=== PATIENT | female | born 1975 | race American Indian/Alaskan Native ===

== ENCOUNTER 2017-08-24 11:19 | Outpatient (CLI) | payer MEDICAID ==
[2017-08-24 13:56] LABS: Hematocrit 37.8 % (30.3-42.9); Hemoglobin 12.8 gm/dl (10.1-14.3); Mean Corpuscular HGB Conc 34 % (30-34); Mean Corpuscular Hemoglobin 33 pg (28-32); Mean Corpuscular Volume 96 fl (79-97); Platelet Count 218 K/mm3 (140-440); Red Blood Count 3.93 M/mm3 (3.65-5.03); Red Cell Distribution Width 13.7 % (13.2-15.2)
[2017-08-24] MEDS ORDERED: LACTATED RINGERS 500 ML IV ONE (14:00)
[2017-08-24 14:06] LABS: INR 0.96 (0.87-1.13)
[2017-08-24 14:07] LABS: Partial Thromboplastin Time 27.4 Sec. (24.2-36.6)
--- NOTE | 2017-08-24 15:05 | Ultrasound Report ---
OB ULTRASOUND GREATER THAN 14 WEEKS INDICATION: Fall, lower back pain. COMPARISON: None similar at this institution. TECHNIQUE: Transabdominal grayscale ultrasound with Doppler interrogation. Gestation: Single Position: Cephalic Amniotic Fluid: WNL (7-24 cm) HYACNITH = 13.6 cm Placenta: Fundal; no evidence of abruption Placental Grade: II Heart Rate: 137 BPM Cervical length: Obscured (Normal > 3 cm) ANATOMY VISUALIZED: Stomach Kidneys Bladder Diaphragm 4 Chamber Heart Heart 3 Vessel Cord Abd. Cord Insert SPINE VISUALIZED: Longitudinal Transverse Limited spine due to position The following are not demonstrated due to maternal body habitus or lie: Neuroanatomy BPD: 8.5 cm = 34 w 1 d HC: 31.3 cm = 35 w 1 d AC: 29 cm = 33 w 0 d FL: 6.7 cm = 34 w 4 d HC/AC Ratio: 1.1 Cephalic Index: 79.1 Estimated Weight: 2281 grams Clinical age = 33 w 0 d EDC: 10/12/2017 US Gest. Age = 34 w 2 d EDC: 10/03/2017 CONCLUSION: Single, viable intrauterine gestation with ultrasound estimated age of 34 weeks and 2 days and EDC of 10/03/2017, currently in cephalic lie with details, as above. Thank you for the opportunity to participate in this patient's care.
[2017-08-24] MEDS ORDERED: PROCARDIA*For Tocolysis only PO SCH (16:00)
[2017-08-24] MEDS: PROCARDIA*For Tocolysis only PO SCH ×2 (17:28→21:57)
[2017-08-24] MEDS ORDERED: BENADRYL PO PRN (17:43)
[2017-08-24] MEDS ORDERED: MILK OF MAGNESIA PO PRN (17:43)
[2017-08-24] MEDS ORDERED: DEEP SEA NS PRN (17:43)
[2017-08-24] MEDS ORDERED: COLACE PO PRN (17:43)
[2017-08-24] MEDS ORDERED: ZOFRAN IV PRN (17:43)
[2017-08-24] MEDS ORDERED: AMBIEN PO PRN (17:43)
[2017-08-24] MEDS ORDERED: MYLICON PO PRN (17:43)
[2017-08-24] MEDS ORDERED: PROCARDIA XL PO SCH (18:00)
[2017-08-24] MEDS: TYLENOL PO PRN (20:51)
[2017-08-24] MEDS: LACTATED RINGERS 1,000 ML IV SCH (20:57)
[2017-08-25] MEDS: LACTATED RINGERS 1,000 ML IV SCH (04:04)
[2017-08-25] MEDS: PROCARDIA*For Tocolysis only PO SCH ×2 (05:41→10:21)
[2017-08-25] MEDS ORDERED: PRENATAL VITAMIN PO SCH (10:00)
[2017-08-25 11:45] VITALS: BP 114/66
[2017-08-25] MEDS: TYLENOL PO PRN (11:54)
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
== END 2017-08-25 11:45 | disposition home or self-care (01) ==
LOC: TRG 11:19 → LD 11:44 → TRG 08-25 11:45
PROVIDERS: ATTEND Obstetrics & Gynecology
DX: O09.523 Supervision of elderly multigravida, third trimester (principal); O26.893 Other specified pregnancy related conditions, third trimester; M54.5 Low back pain; W19.XXXA Unspecified fall, initial encounter; Z3A.33 33 weeks gestation of pregnancy; Z87.891 Personal history of nicotine dependence; Y93.89 Activity, other specified; Y92.89 Other specified places as the place of occurrence of the external cause; Y99.8 Other external cause status
CPT/HCPCS: 36415; 76805; 82731; 85027; 85610; 85730; 86850; 86900; 86901; J7120; 59025

== ENCOUNTER 2017-09-10 13:19 | Inpatient (IN) | payer MEDICAID ==
[2017-09-10] MEDS ORDERED: LACTATED RINGERS 500 ML IV ONE (14:12)
--- NOTE | 2017-09-10 15:48 | Ultrasound Report ---
ULTRASOUND BIOPHYSICAL PROFILE: History: well being Technique: Transabdominal ultrasound with Doppler interrogation. 2 - breathing movements 2 - movements 2 - posture and tone 2 - Qualitative amniotic fluid volume 8 - TOTAL SCORE OF POSSIBLE 8 Heart Rate (bpm) 132
--- NOTE | 2017-09-10 15:49 | Ultrasound Report ---
ULTRASOUND OB LIMITED History: well being Technique: Transabdominal ultrasound with Doppler interrogation. Gestation: Single Position: Cephalic Amniotic Fluid: Normal HYACINTH = 14.3 cm Heart Rate: 145 BPM
[2017-09-10 16:46] LABS: Basophils # (Auto) 0.1 K/mm3 (0.0-0.1); Basophils % (Auto) 0.9 % (0.0-1.8); Eosinophils % (Auto) 0.5 % (0.0-4.3); Hematocrit 38.4 % (30.3-42.9); Lymphocytes # (Auto) 1.8 K/mm3 (1.2-5.4); Lymphocytes % (Auto) 20.1 % (13.4-35.0); Mean Corpuscular HGB Conc 34 % (30-34); Mean Corpuscular Hemoglobin 33 pg (28-32); Mean Corpuscular Volume 96 fl (79-97); Monocytes % (Auto) 10.9 % (0.0-7.3); Platelet Count 197 K/mm3 (140-440); Red Blood Count 3.99 M/mm3 (3.65-5.03); Red Cell Distribution Width 14.2 % (13.2-15.2)
[2017-09-10] MEDS ORDERED: LACTATED RINGERS 1,000 ML ONE (16:50)
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
[2017-09-10] MEDS ORDERED: ALUM-MAG HYDROX-SIMETH 200-200-20MG/5ML PO PRN (17:22)
[2017-09-10] MEDS ORDERED: MYLICON PO PRN (17:22)
[2017-09-10] MEDS ORDERED: ZOFRAN IV PRN (17:22)
[2017-09-10] MEDS ORDERED: TYLENOL PO PRN (17:22)
[2017-09-10] MEDS ORDERED: MILK OF MAGNESIA PO PRN (17:22)
[2017-09-10] MEDS ORDERED: COLACE PO PRN (17:22)
[2017-09-10] MEDS ORDERED: AMBIEN PO PRN (17:22)
[2017-09-10] MEDS ORDERED: LACTATED RINGERS 1,000 ML IV SCH (18:00)
[2017-09-11 07:59] VITALS: BP 101/64
--- NOTE | 2017-09-11 08:12 | Consultation ---
History of Present Illness - Reason for Consult Consult date: 09/11/17 Requesting physician: ALBERTO SALES Past History Social history: . denies: smoking, alcohol abuse, prescription drug abuse Medications and Allergies Allergies Allergy/AdvReac Type Severity Reaction Status Date / Time No Known Allergies Allergy Unverified 08/24/17 12:50 Home Medications Medication Instructions Recorded Confirmed Last Taken Type NIFEdipine [Procardia] 10 mg PO TID #90 capsule 08/25/17 Unknown Rx Active Meds: Active Medications Acetaminophen (Tylenol) 650 mg PO Q4H PRN PRN Reason: Pain MILD(1-3)/Fever >100.5/TERRY Al Hydrox/Mg Hydrox/Simethicone (Alum-Mag Hydrox-Simeth [phone]/5ml) 30 ml PO Q6H PRN PRN Reason: Indigestion Docusate Sodium (Colace) 100 mg PO Q12H PRN PRN Reason: Constipation Lactated Ringer's (Lactated Ringers) 1,000 mls @ 125 mls/hr IV DIRECT [facility] Last Admin: 09/11/17 05:57 Dose: 125 mls/hr Magnesium Hydroxide (Milk Of Magnesia) 30 ml PO QHS PRN PRN Reason: Laxative Effect Multivitamins/Iron/Calcium ( Vitamin) 1 each PO QDAY [facility] Ondansetron HCl (Zofran) 4 mg IV Q6H PRN PRN Reason: Nausea And Vomiting Simethicone (Mylicon) 80 mg PO Q6H PRN PRN Reason: Gas pain Zolpidem Tartrate (Ambien) 10 mg PO ONCE PRN PRN Reason: Sleep Exam - Constitutional Vitals: Temp Pulse Resp BP Pulse Ox 97.5 F L 82 24 101/64 97 09/11/17 07:58 09/11/17 08:10 09/11/17 07:58 09/11/17 08:02 09/11/17 08:10 Results - Labs CBC & Chem 7: 09/10/17 16:24 Labs: Abnormal lab results 09/10/17 Range/Units 16:24 MCH 33 H (28-32) pg [place] % (Auto) 10.9 H (0.0-7.3) % [place] # 1.0 H (0.0-0.8) K/mm3 Assessment and Plan Pt. seen; full note to follow in paper chart. Currently reassuring tracing. BPP pending. If all remains reassuring, can d/c home. Continue [facility] outpt. f/u.
--- NOTE | 2017-09-11 09:05 | Progress Note ---
Assessment and Plan - Patient Problems (1) contractions Current Visit: Yes Status: Acute Plan to address problem: reassuring monitoring send patient home Subjective - Subjective Date of service: 09/11/17 Interval history: Patient without any significant complaints. Reports that intermittent contractions are not painful. Review of NST CAT 1. BPP 03/13. Patient reports: no new complaints Objective - Vital Signs Vital Signs: Vital Signs - 12hr 09/10/17 09/11/17 09/11/17 22:30 00:30 04:00 Temperature 96.0 F L 97.0 F L 97.0 F L Pulse Rate Respiratory 16 18 Rate Blood Pressure Blood Pressure [Left] O2 Sat by Pulse Oximetry 09/11/17 09/11/17 09/11/17 05:34 06:00 06:24 Temperature 97.3 F L 97.0 F L Pulse Rate 70 Respiratory 20 Rate Blood Pressure 112/75 Blood Pressure [Left] O2 Sat by Pulse Oximetry 09/11/17 09/11/17 09/11/17 07:58 08:00 08:02 Temperature 97.5 F L Pulse Rate 91 H 72 90 Respiratory 24 Rate Blood Pressure 107/66 101/64 Blood Pressure 101/64 [Left] O2 Sat by Pulse 98 98 Oximetry 09/11/17 09/11/17 09/11/17 08:05 08:10 08:15 Temperature Pulse Rate 81 82 79 Respiratory Rate Blood Pressure Blood Pressure [Left] O2 Sat by Pulse 97 97 97 Oximetry 09/11/17 09/11/17 09/11/17 08:20 08:25 08:30 Temperature Pulse Rate 87 71 71 Respiratory Rate Blood Pressure Blood Pressure [Left] O2 Sat by Pulse 98 98 98 Oximetry 09/11/17 09/11/17 09/11/17 08:35 08:40 08:45 Temperature Pulse Rate 80 85 78 Respiratory Rate Blood Pressure Blood Pressure [Left] O2 Sat by Pulse 97 98 97 Oximetry 09/11/17 09/11/17 08:49 08:50 Temperature Pulse Rate 87 Respiratory Rate Blood Pressure Blood Pressure [Left] O2 Sat by Pulse 62 L 98 Oximetry - Labs Labs: Abnormal Labs 09/10/17 16:24 MCH 33 H [place] % (Auto) 10.9 H [place] # 1.0 H Laboratory Results - last 24 hr 09/10/17 09/10/17 16:13 16:24 WBC 8.7 RBC 3.99 Hgb 13.0 Hct 38.4 MCV 96 MCH 33 H MCHC 34 RDW 14.2 Plt Count 197 Lymph % (Auto) 20.1 [place] % (Auto) 10.9 H Eos % (Auto) 0.5 Baso % (Auto) 0.9 Lymph # 1.8 [place] # 1.0 H Eos # 0.0 Baso # 0.1 Seg Neutrophils % 67.6 Seg Neutrophils # 5.9 Blood Type B POSITIVE Antibody Screen Negative
[2017-09-11] MEDS ORDERED: PRENATAL VITAMIN PO SCH (10:00)
--- NOTE | 2017-09-11 12:36 | Discharge Summary ---
Providers - Providers Date of Admission: 09/11/17 09:30 Date of discharge: 09/11/17 Attending physician: ALBERTO SALES MD 09/10/17 17:22 Consult to Physician [CONS] Routine Consulting Provider: INDIA WYNN Reason For Exam: [place], HX OF 34WK IUFD Place consult to:: SANCHEZ Notified:: ANSWERING SERVICE Phone number called:: [phone] Was contact made?: Yes If yes, spoke with:: ROXIE Time called:: 17:00 Primary care physician: ALBERTO SALES MD Hospitalization Reason for admission: other (contractions) Procedure: other (NST) Discharge diagnosis: other ( contractions) Hospital course: Patient evaluated for contractions with findings of variable decelerations during observation. The patient was admitted and received continuous FHT with CAT 1 tracing. The BPP was 8/8 Condition at discharge: Good Disposition: DC-01 TO HOME OR SELFCARE - Discharge Diagnoses (1) contractions Status: Acute Plan - Provider Discharge Summary Diet: routine Instructions: routine Additional instructions: [] Smoking cessation referral if applicable(refer to patient education folder for contact #) [] Refer to [facility] Booklet Call your doctor immediately for: * Fever > 100.5 * Heavy vaginal bleeding ( >1 pad per hour) * Severe persistent headache * Shortness of breath * Reddened, hot, painful area to leg or breast * followup in one week - Follow up plan
== END 2017-09-11 13:37 | disposition home or self-care (01) | DRG 782 ==
LOC: TRG 13:19 → LD 14:12 → TRG 14:12 → OBSVTOIN 09-11 09:30
PROVIDERS: ADMIT Obstetrics & Gynecology; ATTEND Obstetrics & Gynecology
DX: O76 Abnormality in fetal heart rate and rhythm complicating labor and delivery (principal); O60.03 Preterm labor without delivery, third trimester; Z3A.35 35 weeks gestation of pregnancy; Z82.49 Family history of ischemic heart disease and other diseases of the circulatory system; Z83.3 Family history of diabetes mellitus
CPT/HCPCS: 36415; 76815; 76819; 85025; 86850; 86900; 86901; G0378; J7120

== ENCOUNTER 2017-09-19 11:09 | Inpatient (IN) | payer MEDICAID ==
[2017-09-19] MEDS ORDERED: BRETHINE SUB-Q PRN (12:09)
[2017-09-19] MEDS ORDERED: STADOL IV PRN (12:09)
[2017-09-19] MEDS ORDERED: BRETHINE IVP PRN (12:09)
[2017-09-19] MEDS ORDERED: ePHEDrine SULFATE IV PRN ×2 (12:09→17:29)
[2017-09-19] MEDS ORDERED: SUBLIMAZE IV PRN (12:09)
[2017-09-19] MEDS ORDERED: MINERAL OIL PO PRN (12:09)
[2017-09-19] MEDS ORDERED: PITOCin/NS 20 UNIT/1000ML DRIP 20 UNITS/1,000 ML BAG IV SCH ×2 (13:00→23:02)
[2017-09-19] MEDS ORDERED: POLYCILLIN/NS 2 GM/100 ML 2 GM/100 ML BAG IV ONE (13:00)
[2017-09-19] MEDS ORDERED: XYLOCAINE 2% INFILTRATI ONE (13:00)
[2017-09-19] MEDS ORDERED: PITOCin/NS 30 UNIT/500ML 30 UNITS/500 ML BAG IV SCH ×2 (13:00)
[2017-09-19] MEDS: LACTATED RINGERS 1,000 ML IV SCH ×2 (13:10→14:53)
[2017-09-19 13:28] LABS: Hematocrit 39.2 % (30.3-42.9); Hemoglobin 13.3 gm/dl (10.1-14.3); Mean Corpuscular HGB Conc 34 % (30-34); Mean Corpuscular Hemoglobin 32 pg (28-32); Mean Corpuscular Volume 95 fl (79-97); Platelet Count 218 K/mm3 (140-440); Red Blood Count 4.13 M/mm3 (3.65-5.03); Red Cell Distribution Width 14.4 % (13.2-15.2)
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
[2017-09-19] MEDS ORDERED: POLYCILLIN/NS 1 GM/50 ML 1 GM/50 ML BAG IV SCH (16:12)
[2017-09-19] MEDS ORDERED: NARCAN 2 MG/2 ML IV PRN (17:29)
[2017-09-19] MEDS ORDERED: fentaNYL-BUPIV 2 MCG/ML-0.125% 200 MCG/100 ML BAG EPIDURAL SCH (18:30)
--- NOTE | 2017-09-19 18:58 | Anesthesia Consultation ---
Anesthesia Consult and Med Hx Date of service: 09/19/17 - Airway Anesthetic Teeth Evaluation: Good ROM Head & Neck: Adequate Mental/Hyoid Distance: Adequate Mallampati Class: Class III Intubation Access Assessment: Possibly Difficult - Pulmonary Exam CTA: Yes - Cardiac Exam Cardiac Exam: RRR - Pre-Operative Health Status ASA Pre-Surgery Classification: ASA3 Proposed Anesthetic Plan: Epidural, Spinal - Pulmonary Hx Smoking: Yes Hx Asthma: No COPD: No Hx Pneumonia: No - Cardiovascular System Hx Hypertension: No - Central Nervous System Hx Seizures: No Hx Psychiatric Problems: No - Endocrine Hx Renal Disease: No Hx End Stage Renal Disease: No Hx Hypothyroidism: No Hx Hyperthyroidism: No - Hematic Hx Anemia: No Hx Sickle Cell Disease: No - Other Systems Hx Alcohol Use: Yes
--- NOTE | 2017-09-19 19:20 | Event Note ---
Date: 09/19/17 Pt more comfortable with epidural but still feeling contractions. FHT: Category II Tracing- deep variable with late component. SVE: /-1 + bloody show. Continue routine intrapartum care. Closely monitor maternal and status.
--- NOTE | 2017-09-19 21:05 | Procedure Note ---
OB Delivery Note - Delivery Date of Delivery: 09/19/17 Surgeon: FREDRICK JOSÉ Estimated blood loss: 300cc - Vaginal Delivery presentation: vertex Delivery position: OA Intrapartum events: PROM->1hr before delivery, meconium, decreased FHT variability, mult.variable deceleratio Delivery induction: oxytocin Delivery augmentation: pitocin Delivery monitor: external uterine, internal uterine Route of delivery: Delivery placenta: spontaneous Delivery cord: 3 umbilical vessels Episiotomy: none Delivery laceration: none Anesthesia: epidural Delivery comments: Pt progressed to complete/complete/+2 and pushed to deliver a viable female over intact perineum via under epidural anesthesia. Head delivered in ANIA position quickly followed by shoulders and body. placed on maternal abdomen. Cord clamped and cut. Cord blood collected. Placenta delivered spontaneously (3VC, intact). Vagina and perineum explored. EBL 300 mL. - Infant A at 1 minute: 9 at 5 minutes: 9 Gender: Female (3156g (6lb 15 oz) @ 1950 pmm)
[2017-09-19] MEDS ORDERED: PHENERGAN PR PRN (23:02)
[2017-09-19] MEDS ORDERED: LANSINOH TP PRN ×2 (23:02)
[2017-09-19] MEDS ORDERED: TYLENOL PO PRN (23:02)
[2017-09-19] MEDS ORDERED: BENADRYL PO PRN (23:02)
[2017-09-19] MEDS ORDERED: MILK OF MAGNESIA PO PRN (23:02)
[2017-09-19] MEDS ORDERED: DULCOLAX PR PRN (23:02)
[2017-09-19] MEDS ORDERED: SODIUM CHLORIDE FLUSH SYRINGE 10 ML IV NR (23:02)
[2017-09-19] MEDS ORDERED: PHENERGAN PO PRN (23:02)
[2017-09-19] MEDS ORDERED: ZOFRAN IV PRN (23:02)
[2017-09-19] MEDS ORDERED: TUCKS PAD TP PRN (23:02)
[2017-09-19] MEDS ORDERED: DERMOPLAST TP PRN (23:02)
[2017-09-19] MEDS: MOTRIN PO SCH (23:54)
[2017-09-19] MEDS: FEOSOL PO SCH (23:54)
[2017-09-20] MEDS: NORCO 5/325 PO PRN ×2 (00:46→20:37)
[2017-09-20] MEDS: MOTRIN PO SCH ×3 (05:43→14:45)
[2017-09-20] MEDS ORDERED: M-M-R II VACCINE SUB-Q ONE (06:00)
[2017-09-20] MEDS ORDERED: BOOSTRIX IM ONE (06:00)
--- NOTE | 2017-09-20 08:52 | Progress Note ---
Assessment and Plan A: ~ 12 hrs s/p at 36 wks, PPROM, AMA, Obesity P: Routine care. Subjective - Subjective Date of service: 09/20/17 Principal diagnosis: s/p prterm delivery, PPROM at 36 wks Interval history: No overnight events. Patient reports: appetite normal, voiding normally, pain well controlled, ambulating normally [place]: doing well Objective - Vital Signs Latest vital signs: Vital Signs Temp Pulse Resp BP BP Pulse Ox 09/20/17 04:00 98.4 F 77 16 112/72 09/19/17 23:00 98.6 F 68 16 101/76 09/19/17 21:34 83 116/68 09/19/17 21:31 83 99 09/19/17 21:26 86 98 09/19/17 21:21 84 98 09/19/17 21:20 88 131/63 09/19/17 21:16 89 99 09/19/17 21:11 97 H 99 09/19/17 21:06 98 H 98 09/19/17 21:04 160 H 134/62 09/19/17 21:01 87 99 09/19/17 20:56 91 H 99 09/19/17 20:51 92 H 99 09/19/17 20:49 88 129/58 09/19/17 20:46 93 H 98 09/19/17 20:41 97 H 99 09/19/17 20:36 101 H 98 09/19/17 20:34 96 H 127/67 09/19/17 20:31 101 H 98 09/19/17 19:00 98.7 F 18 117/73 09/19/17 15:15 77 99 09/19/17 15:10 80 98 09/19/17 15:05 79 99 09/19/17 15:00 79 98 09/19/17 14:55 89 99 09/19/17 14:50 81 97 09/19/17 14:45 81 99 09/19/17 14:41 71 118/73 09/19/17 14:40 74 100 09/19/17 14:32 98.7 F 74 18 117/73 100 09/19/17 13:42 82 98 09/19/17 13:38 85 63 L 09/19/17 13:37 82 98 09/19/17 13:32 83 98 09/19/17 13:27 84 98 09/19/17 13:16 93 H 86 09/19/17 13:11 92 H 99 09/19/17 13:06 81 100 09/19/17 13:01 81 97 09/19/17 12:55 82 100 09/19/17 12:50 81 100 09/19/17 12:45 89 99 09/19/17 12:40 83 99 09/19/17 12:35 97 H 99 09/19/17 12:30 78 98 09/19/17 12:25 88 98 09/19/17 12:20 96 H 99 09/19/17 12:18 78 119/78 Intake and Output 09/19/17 09/20/17 09/20/17 22:59 06:59 14:59 Intake Total 9.333 Output Total 800 Balance 9.333 -800 Intake: IV 9.333 PITOCin/NS 30 UNIT/500ML 9.333 30 units In 500 ml @ 4 mls/hr IV TITR [facility] Rx#: [id number] Output: Urine 800 Void 800 Other: Total, Output Amount 800 # Voids Void 1 Estimated Blood Loss 300 - Exam Breasts: Present: deferred Cardiovascular: Present: Regular rate Lungs: Present: Clear to auscultation Abdomen: Present: soft Uterus: Present: fundal height at umbilicus Extremities: Present: edema
[2017-09-20 09:25] LABS: Hematocrit 35.2 % (30.3-42.9); Hemoglobin 12.1 gm/dl (10.1-14.3)
[2017-09-20] MEDS: PRENATAL VITAMIN PO SCH (10:59)
[2017-09-20] MEDS: FEOSOL PO SCH ×2 (11:00→20:59)
[2017-09-20] MEDS: COLACE PO SCH ×2 (11:01→20:59)
[2017-09-21] MEDS: MOTRIN PO SCH ×3 (00:05→12:43)
--- NOTE | 2017-09-21 08:38 | Progress Note ---
Assessment and Plan A/P PPD#2 s/p B+ no rhogam indicated breast feeding H/H 13.3---12.1 d/c home with follow up in 4 weeks bonding with baby girl Subjective - Subjective Date of service: 09/21/17 Principal diagnosis: s/p prterm delivery, PPROM at 36 wks Patient reports: appetite normal, voiding normally, pain well controlled, flatus , ambulating normally [place]: doing well Objective - Vital Signs Latest vital signs: Vital Signs Temp Pulse Resp BP BP Pulse Ox 09/21/17 00:00 98.0 F 73 18 111/73 09/20/17 16:52 98.5 F 82 18 116/75 98 Intake and Output 09/20/17 09/21/17 09/21/17 23:59 07:59 15:59 Intake Total 240 Balance 240 Intake: Oral 240 Other: Total, Intake Amount 240 # Voids Void 1 1 - Exam Breasts: Present: normal Cardiovascular: Present: Regular rate, Normal S1 Lungs: Present: Clear to auscultation, Normal air movement Abdomen: Present: normal appearance, soft, normal bowel sounds. Absent: distention, tenderness, guarding Vulva: both: normal Uterus: Present: normal, firm, fundal height below umbilicus. Absent: bogginess , tenderness Extremities: Present: normal Deep Tendon Reflex Grade: Normal +2 Incision: Present: normal
--- NOTE | 2017-09-21 08:39 | Discharge Summary ---
Providers - Providers Date of Admission: 09/19/17 12:33 Date of discharge: 09/21/17 Attending physician: FREDRICK JOSÉ 09/19/17 23:02 Consult to Store Receiving Specialist [CONS] Routine Reason For Exam: Primary care physician: ALBERTO SALES MD Hospitalization Reason for admission: active labor Delivery: Episiotomy: none Laceration: none Incision: normal Other procedures: none complications: none Discharge diagnosis: IUP at term delivered [place] baby: female Hospital course: Unremarkable PP course. d/c home Disposition: DC-30 STILL A PATIENT Plan - Discharge Medications Prescriptions: Ferrous Sulfate 325 mg PO DAILY #30 tablet. HYDROcodone/APAP 5-325 [[place] 5/325] 1 each PO Q6HR PRN #30 tablet PRN Reason: Pain Ibuprofen [Motrin] 600 mg PO Q8H PRN #30 tablet PRN Reason: Pain - Provider Discharge Summary Activity: routine, no sex for 6 weeks, no strenuous exercise Diet: routine Instructions: routine Additional instructions: [] Smoking cessation referral if applicable(refer to patient education folder for contact #) [] Refer to [facility] Booklet Call your doctor immediately for: * Fever > 100.5 * Heavy vaginal bleeding ( >1 pad per hour) * Severe persistent headache * Shortness of breath * Reddened, hot, painful area to leg or breast * Drainage or odor from incision. * Keep incision clean and dry at all times and follow doctor's instructions regarding bathing/showering - Follow up plan Follow up: ALBERTO SALES MD [Primary Care Provider] - 10/17/17
[2017-09-21] MEDS: COLACE PO SCH (10:49)
[2017-09-21] MEDS: FEOSOL PO SCH (10:49)
[2017-09-21] MEDS: PRENATAL VITAMIN PO SCH (10:49)
[2017-09-21 17:28] VITALS: BP 127/84
== END 2017-09-21 16:23 | disposition home or self-care (01) | DRG 775 ==
LOC: TRG 11:09 → LD 12:33 → OB 22:01
PROVIDERS: ADMIT Obstetrics & Gynecology; ATTEND Obstetrics & Gynecology
PROC: 10E0XZZ Delivery of Products of Conception, External Approach (ICD-10-PCS; principal; 2017-09-19)
PROC: 3E0234Z Introduction of Serum, Toxoid and Vaccine into Muscle, Percutaneous Approach (ICD-10-PCS; 2017-09-19)
PROC: 3E0R3BZ Introduction of Anesthetic Agent into Spinal Canal, Percutaneous Approach (ICD-10-PCS; 2017-09-19)
PROC: 00HU33Z Insertion of Infusion Device into Spinal Canal, Percutaneous Approach (ICD-10-PCS; 2017-09-19)
PROC: 3E033VJ Introduction of Other Hormone into Peripheral Vein, Percutaneous Approach (ICD-10-PCS; 2017-09-19)
DX: O42.013 Preterm premature rupture of membranes, onset of labor within 24 hours of rupture, third trimester (principal); O99.824 Streptococcus B carrier state complicating childbirth; Z3A.36 36 weeks gestation of pregnancy; Z37.0 Single live birth; Z23 Encounter for immunization; O77.0 Labor and delivery complicated by meconium in amniotic fluid; O76 Abnormality in fetal heart rate and rhythm complicating labor and delivery; O99.214 Obesity complicating childbirth; E66.9 Obesity, unspecified; Z68.34 Body mass index [BMI] 34.0-34.9, adult
CPT/HCPCS: 36415; 85014; 85018; 85027; 86592; 86850; 86900; 86901; 88307; 90471; 90715; 99211; G0463; J0290; J2590; J7120